=== PATIENT | female | born 1995 | race Caucasian/White ===

== ENCOUNTER 2017-03-30 15:52 | Emergency (ER) | payer BC, OTHER ==
[2017-03-30 16:12] VITALS: BP 108/72
[2017-03-30] MEDS ORDERED: Tetan/Diph/Pertus SYR(Tdap)* 0.5 ML SYR(BOOSTRIX) use SYR IM ONE (16:17)
--- NOTE | 2017-03-30 16:17 | UC ---
Skin Complaint HPI - HPI Summary HPI Summary: Patient stepped on a kathi nail this morning, more of a scrap then a puncture, but she is not up to date on Tetanus. Site is clean, non red, tender when walking - History of Current Complaint Chief Complaint: UCWounds Time Seen by Provider: 03/30/17 16:12 Stated Complaint: STEPPED ON KATHI NAIL Hx Obtained From: Patient Hx Last Menstrual Period: 06/17/15 ?: No Onset/Duration: Sudden Onset, Lasting Hours Skin Exposure Onset/Duration: Minutes Ago, Hours Ago Timing: Intermittent Episodes Lasting: - once Onset Severity: Mild Current Severity: Mild Character: Pain Aggravating: Nothing Alleviating: Nothing Related History: Trauma - Allergy/Home Medications Allergies/Adverse Reactions: Allergies Allergy/AdvReac Type Severity Reaction Status Date / Time No Known Allergies Allergy Unverified 09/17/13 15:13 Review of Systems Constitutional: Negative Skin: Negative, Other - small open area on bottom of toe Eyes: Negative ENT: Negative Respiratory: Negative Cardiovascular: Negative Gastrointestinal: Negative Genitourinary: Negative Motor: Negative Neurovascular: Negative Musculoskeletal: Negative Neurological: Negative Psychological: Negative All Other Systems Reviewed And Are Negative: Yes PMH/Surg Hx/FS Hx/Imm Hx Previously Healthy: Yes - Surgical History Surgical History: Yes Surgery Procedure, Year, and Place: Right inguinal hernia. tonsilectomy - Family History Known Family History: Negative: Cardiac Disease, Hypertension - Social History Alcohol Use: None Substance Use Type: None Smoking Status (MU): Never Smoked Tobacco Have You Smoked in the Last Year: No - Immunization History Vaccination Up to Date: Yes Physical Exam Triage Information Reviewed: Yes Appearance: Well-Appearing, Well-Nourished, Pain Distress Vital Signs: Initial Vital Signs Temp 99.2 F 03/30/17 16:09 Pulse 53 03/30/17 16:09 Resp 18 03/30/17 16:09 BP 108/72 03/30/17 16:09 Pulse Ox 99 03/30/17 16:09 Vital Signs Reviewed: Yes Eye Exam: Normal Eyes: Positive: Conjunctiva Clear ENT Exam: Normal ENT: Positive: Hearing grossly normal, Pharynx normal, TMs normal Dental Exam: Normal Neck exam: Normal Respiratory Exam: Normal Cardiovascular Exam: Normal Abdominal Exam: Normal Bowel Sounds: Positive: Present Musculoskeletal Exam: Normal Neurological Exam: Normal Psychological Exam: Normal Skin: Positive: Other - small scrape to the bottow of left great toe Course/Dx - Course Course Of Treatment: hx obtained, exam performed ,meds reviewed, tetanus given, educated on warm soaks - Differential Diagnoses - Skin Complaint Differential Diagnoses: Abscess, Cellulitis, Contact Dermatitis, Medication; Adverse Reaction, MRSA, Urticaria - Diagnoses Provider Diagnoses: puncture wound to left great toe Discharge - Discharge Plan Condition: Stable Disposition: HOME Patient Education Materials: Puncture Wound (ED), Warm Compress or Soak (ED) Additional Instructions: 1. monitor for signs of infection, increased Redness, swelling or drainage. 2. Soak your foot twice a day for the next few days. 3. Follow up as needed. 4. You received the tetanus, diptheria and pertussis booster today.
== END 2017-03-30 16:25 | disposition home or self-care (01) ==
LOC: UCEAST 15:52
DX: S91.132A Puncture wound without foreign body of left great toe without damage to nail, initial encounter (principal); W22.8XXA Striking against or struck by other objects, initial encounter; Y93.9 Activity, unspecified; Y92.9 Unspecified place or not applicable; Y99.9 Unspecified external cause status; Z23 Encounter for immunization
CPT/HCPCS: 90715; 99211; G0463

== ENCOUNTER 2018-12-17 09:49 | Emergency (ER) | payer BC, OTHER ==
--- OUTSIDE RECORDS SUMMARY | 2018-12-17 10:14 | XMS REPORT | Continuity of Care Document ---
:1995 External Reference #:[id number] Author Name Lilian Howell M.D. Address [address] [place] [address] Care Team Providers Name Role Phone Lilian Howell M.D. Primary Care Physician Unavailable Payers Date Identification Numbers Payment Provider Subscriber Effective: 2013 Policy Number: [id number] [facility] Jesus Mao PayID: [id number] [address] [place] [address] Advance Directives Description No Information Available Problems Date Description Provider Status Onset: 09/23/2014 Acne Lilian Howell M.D. Active Family History Description No Information Available Social History Type Date Description Comments Sex Unknown Tobacco Use Start: Unknown Patient has never smoked Tobacco Use Start: Unknown No Exposure To Secondhand Smoke Smoking Status Reviewed: 10/12/18 No Exposure To Secondhand Smoke Allergies, Adverse Reactions, Alerts Description No Known Drug Allergies Medications Medication Date Status Form Strength Qnty SIG Indications Ordering Provider Atovaquone-Pro 10/12/ Active Tablets 250-100mg 60tabs 1 tab by TRAVEL Lilian Dinh guanil HCL 2018 mouth every Lynda, day start 2 M.D. days prior to travel and continue for a week after returning Cipro 10/12/ Active Tablets 500mg 12tabs 1 tab by TRAVEL Lilian Dinh 2017 mouth twice Lynda, a day x3d M.D. Mupirocin 10/12/ Active Ointment 2% 1units apply to TRAVEL Lilian Lara affected Lynda, area 3x/per M.D. a day x7d Nexplanon 10/13/ Active Implant 68mg Unknown 2017 Clindamycin / Active Gel 1-5% 50gm every day Lilian H. Phos-Benzoyl 0000 Lynda, Perox M.D. Retin-A / Active Cream 0.05% 45gm apply to Unknown 0000 face nightly, wash off in the morning. Amoxicillin 10/24/ Hx Tablets 875mg 20tabs 1 tab by J01.80 Gabbie 2016 - mouth twice Hall, 03/06/ a day for M.D. 2017 10 days Tri-Linyah 09/23/ Hx Tablets 0.18/0.215 28tabs take 1 Lilian H. 2014 - /0.25 tablet by Lynda, 10/13/ mg-35 mcg mouth once M.D. 2018 daily Tri-Sprintec 05/27/ Hx Tablets Every Day Unknown 2013 - 2013 Tretinoin 03/23/ Hx Cream 0.1% Every Day Unknown 2012 - 2013 Minocycline / Hx Tablets 100mg 30tabs 1 tab by Unknown HCL 0000 - mouth every 09/28/ day 2014 Cephalexin / Hx Capsules 500mg take 1 Unknown 0000 - capsule by 10/23/ mouth once 2016 daily Ibuprofen 200 / Hx Tablets 200mg Last dose Unknown - 10/09 @ 10// 1000 2 2018 tablets Medications Administered in Office Medication Date Status Form Strength Qnty SIG Indications Ordering Provider Immunization 10/02/ Administered Injection Nursing Adminstration 22017 Single Or Combination Immunization 10/02/ Administered Injection Nursing Administration 2018 Single Or Combination Immunization 04/14/ Administered Injection Lilian H. Administration 2018 Lynda, Single Or M.D. Combination TB Intradermal 04/14/ Administered Injection Lilian H. Test 2018 Lynda, M.D. Immunization 10/27/ Administered Injection Lilian H. Administration 2017 Lynda, Single Or M.D. Combination Immunization 09/29/ Administered Injection Lilian H. Administration 2014 Lynda, Single Or M.D. Combination Immunization 09/23/ Administered Injection Lilian H. Adminstration 2+ 2013 Lynda, Single Or M.D. Combination Immunization 09/23/ Administered Injection Lilian H. Administration 2014 Lynda, Single Or M.D. Combination Immunizations CPT Code Status Date Vaccine Lot # [id number] Given 10/02/2018 Td Preservative Free For Use In Individuals 7 Yrs [id number] Or Older 86834 Given 10/02/2018 Typhoid Injectable [id number] 87417 Given 10/02/2018 Flu Quadrivalent [id number] 86953 Given 10/02/2018 Meningococcal B Vaccine [id number] 32881 Given 04/14/2018 Meningococcal B Vaccine [id number] 86850 Given 10/27/2017 Meningococcal Conjugate Vaccine (Menveo) [id number] 07969 Given 09/12/2017 Flu Quadrivalent 00515 Given 11/09/2016 Flu Quadrivalent 05536 Given 09/29/2015 Flu Quadrivalent [id number] 27938 Given 09/23/2014 Flu Quadrivalent [id number] 88905 Given 09/23/2014 Varicella (Chicken Pox) Vaccine [id number] 44517 Given 03/22/2014 Gardasil 19375 Given 11/22/2013 Gardasil 29860 Given 09/17/2013 Influenza Virus Vaccine, Split Virus, 6-35 Months Age Intramuscul 91901 Given 09/17/2013 Gardasil 17999 Given 08/19/2012 Influenza Virus Vaccine, Split Virus, 6-35 Months Age Intramuscul 72227 Given 08/02/2011 Influenza Virus Vaccine, Split Virus, 6-35 Months Age Intramuscul 83865 Given 07/27/2010 Influenza Virus Vaccine Intranasal 87640 Given 08/23/2009 Influenza Virus Vaccine, Split Virus, 6-35 Months Age Intramuscul 51922 Given 07/26/2009 Tdap 04115 Given 07/26/2009 Menactra 47178 Given 08/03/2008 Influenza Virus Vaccine Intranasal 43891 Given 06/30/2003 Hepatitis A Pediatric 71080 Given 01/12/2003 Polio Injectable 17862 Given 01/12/2003 MMR Vaccine, Live, For Subcutaneous Use 19989 Given 01/12/2003 DTaP Vaccine Younger Than 7 66014 Given 12/16/2002 Hepatitis A Pediatric 28402 Given 07/31/1999 Varicella (Chicken Pox) Vaccine 08436 Given 01/15/1999 DTaP Vaccine Younger Than 7 27077 Given 01/15/1999 MMR Vaccine, Live, For Subcutaneous Use 43432 Given 01/15/1999 Polio Injectable 75924 Given 01/15/1999 Comvax (For Historical Use Only) 50232 Given 05/01/1998 DTaP Vaccine Younger Than 7 38227 Given 02/22/1998 Comvax (For Historical Use Only) 40888 Given 02/22/1998 Polio Injectable 33436 Given 02/22/1998 DTaP Vaccine Younger Than 7 24673 Given 01/09/1998 Comvax (For Historical Use Only) 21578 Given 01/09/1998 Polio Injectable 63378 Given 01/09/1998 DTaP Vaccine Younger Than 7 Vital Signs Date Vital Result Comment 10/12/2018 11:47am Body Temperature 98.6 F Heart Rate 50 /min Respiratory Rate 14 /min BP Systolic 101 mmHg BP Diastolic 65 mmHg Weight 121.44 lb Weight 55.084 kg 10/09/2018 1:29pm Body Temperature 98.8 F Heart Rate 80 /min Respiratory Rate 16 /min BP Systolic 122 mmHg BP Diastolic 68 mmHg Weight 122.50 lb Weight 55.566 kg 04/14/2018 10:34am Body Temperature 97.6 F Heart Rate 62 /min Respiratory Rate 14 /min BP Systolic 110 mmHg BP Diastolic 62 mmHg Weight 120.50 lb Weight 54.659 kg Height 65 inches 5'5" BMI (Body Mass Index) 20.1 kg/m2 10/27/2017 10:50am Body Temperature 98.6 F Heart Rate 55 /min Respiratory Rate 12 /min BP Systolic 98 mmHg BP Diastolic 50 mmHg Weight 113.38 lb Weight 51.427 kg Height 65.0 inches 5'5" BMI (Body Mass Index) 18.9 kg/m2 03/07/2017 1:34pm Body Temperature 98.8 F Heart Rate 63 /min Respiratory Rate 12 /min BP Systolic 111 mmHg BP Diastolic 74 mmHg Weight 122.75 lb Weight 55.679 kg Height 64.75 inches 5'4.75" BMI (Body Mass Index) 20.6 kg/m2 Body Mass Index Percentile 37 % 2015 9:23am Body Temperature 98.4 F Heart Rate 66 /min Respiratory Rate 14 /min BP Systolic 122 mmHg BP Diastolic 64 mmHg Blood Pressure Percentile 0 % Weight 121.38 lb Weight 55.056 kg Weight Percentile 45th 09/29/2015 2:42pm Body Temperature 98.5 F Heart Rate 56 /min Respiratory Rate 12 /min BP Systolic 107 mmHg BP Diastolic 63 mmHg Blood Pressure Percentile 0 % Weight 125.19 lb Weight 56.785 kg Height 65.5 inches 5'5.50" BMI (Body Mass Index) 20.5 kg/m2 Body Mass Index Percentile 40 % Height Percentile 69 % Weight Percentile 53rd 02/06/2015 10:55am Body Temperature 98.2 F Heart Rate 70 /min Respiratory Rate 12 /min BP Systolic 125 mmHg BP Diastolic 73 mmHg Blood Pressure Percentile 87 % Weight 126.50 lb Weight 57.380 kg Height 65.5 inches 5'5.50" BMI (Body Mass Index) 20.7 kg/m2 Body Mass Index Percentile 47 % Height Percentile 70 % Weight Percentile 58th 09/23/2014 3:08pm Body Temperature 98.8 F Heart Rate 48 /min Respiratory Rate 12 /min BP Systolic 105 mmHg BP Diastolic 70 mmHg Blood Pressure Percentile 23 % Weight 124.75 lb Weight 56.587 kg Height 65 inches 5'5" BMI (Body Mass Index) 20.8 kg/m2 Body Mass Index Percentile 49 % Height Percentile 63 % Weight Percentile 57th 09/17/2013 12:00pm Heart Rate 61 /min Respiratory Rate 12 /min BP Systolic 104 mmHg BP Diastolic 69 mmHg Weight 118.38 lb Weight 53.705 kg Height 64.75 inches 04/30/2013 1:00pm Heart Rate 74 /min Respiratory Rate 12 /min Weight 121.12 lb Weight 54.930 kg 02/01/2013 1:00pm Heart Rate 60 /min Respiratory Rate 20 /min BP Systolic 105 mmHg BP Diastolic 65 mmHg Weight 119.50 lb Weight 54.204 kg 08/19/2012 12:00pm Body Temperature 98.8 F Heart Rate 68 /min Respiratory Rate 18 /min BP Systolic 110 mmHg BP Diastolic 70 mmHg Weight 113.50 lb Weight 51.483 kg Height 64.5 inches 05/19/2012 1:00pm Heart Rate 64 /min Respiratory Rate 20 /min BP Systolic 106 mmHg BP Diastolic 54 mmHg Weight 112.25 lb Weight 50.916 kg 11/19/2011 12:00pm Heart Rate 60 /min Respiratory Rate 16 /min BP Systolic 90 mmHg BP Diastolic 68 mmHg Weight 106.25 lb Weight 48.194 kg 08/02/2011 1:00pm Heart Rate 54 /min Respiratory Rate 12 /min BP Systolic 92 mmHg BP Diastolic 60 mmHg Weight 98.38 lb Weight 44.633 kg Height 64.25 inches 05/27/2011 1:00pm Heart Rate 66 /min Respiratory Rate 16 /min BP Systolic 111 mmHg BP Diastolic 82 mmHg Weight 95.88 lb Weight 43.500 kg 09/17/2010 12:00pm Heart Rate 64 /min Respiratory Rate 12 /min BP Systolic 100 mmHg BP Diastolic 60 mmHg Weight 89.00 lb Weight 40.370 kg 09/10/2010 12:00pm Heart Rate 84 /min Respiratory Rate 20 /min BP Systolic 106 mmHg BP Diastolic 68 mmHg Weight 88.62 lb Weight 40.202 kg 07/27/2010 1:00pm Heart Rate 60 /min Respiratory Rate 12 /min BP Systolic 101 mmHg BP Diastolic 64 mmHg Weight 90.12 lb Weight 40.869 kg Height 62.75 inches 07/10/2010 1:00pm Heart Rate 90 /min Respiratory Rate 16 /min BP Systolic 100 mmHg BP Diastolic 70 mmHg Weight 89.94 lb Weight 40.801 kg 05/17/2010 1:00pm Heart Rate 64 /min Respiratory Rate 20 /min BP Systolic 98 mmHg BP Diastolic 60 mmHg Weight 87.00 lb Weight 39.463 kg 07/17/2009 1:00pm Height 60 inches 07/17/2009 1:00pm Heart Rate 68 /min Respiratory Rate 20 /min BP Systolic 106 mmHg BP Diastolic 62 mmHg Weight 80.50 lb Weight 36.514 kg Height 59.75 inches 02/21/2009 1:00pm Heart Rate 96 /min Respiratory Rate 18 /min BP Systolic 96 mmHg BP Diastolic 62 mmHg Weight 77.00 lb Weight 34.927 kg 01/16/2009 1:00pm Heart Rate 80 /min Respiratory Rate 16 /min BP Systolic 104 mmHg BP Diastolic 66 mmHg Weight 76.75 lb Weight 34.813 kg Height 59 inches 09/26/2008 12:00pm Heart Rate 96 /min Respiratory Rate 20 /min BP Systolic 98 mmHg BP Diastolic 64 mmHg Weight 72.25 lb Weight 32.772 kg 08/02/2008 1:00pm Heart Rate 76 /min Respiratory Rate 18 /min BP Systolic 96 mmHg BP Diastolic 76 mmHg Weight 68.75 lb Weight 31.184 kg Height 58 inches 11/23/2007 12:00pm Heart Rate 76 /min Respiratory Rate 12 /min BP Systolic 98 mmHg BP Diastolic 64 mmHg Weight 69.25 lb Weight 31.411 kg 11/02/2007 12:00pm Heart Rate 68 /min Respiratory Rate 16 /min BP Systolic 98 mmHg BP Diastolic 58 mmHg Weight 66.25 lb Weight 30.050 kg 10/16/2007 12:00pm Heart Rate 80 /min Respiratory Rate 20 /min BP Systolic 88 mmHg BP Diastolic 40 mmHg Weight 66.50 lb Weight 30.164 kg 07/28/2007 1:00pm Heart Rate 76 /min Respiratory Rate 16 /min BP Systolic 96 mmHg BP Diastolic 56 mmHg Weight 64.50 lb Weight 29.257 kg Height 55.5 inches 07/03/2007 1:00pm Heart Rate 64 /min Respiratory Rate 20 /min BP Systolic 94 mmHg BP Diastolic 52 mmHg Weight 64.50 lb Weight 29.257 kg 02/26/2007 1:00pm Heart Rate 60 /min Respiratory Rate 16 /min BP Systolic 92 mmHg BP Diastolic 60 mmHg Weight 67.00 lb Weight 30.391 kg 01/01/2007 1:00pm Heart Rate 70 /min Respiratory Rate 18 /min BP Systolic 84 mmHg BP Diastolic 54 mmHg Weight 65.00 lb Weight 29.484 kg 12/22/2006 1:00pm Heart Rate 68 /min Respiratory Rate 20 /min BP Systolic 98 mmHg BP Diastolic 60 mmHg Weight 64.00 lb Weight 29.030 kg 12/09/2006 12:00pm Heart Rate 60 /min Respiratory Rate 16 /min BP Systolic 90 mmHg BP Diastolic 54 mmHg Weight 68.00 lb Weight 30.844 kg 11/07/2006 12:00pm Heart Rate 68 /min Respiratory Rate 16 /min BP Systolic 92 mmHg BP Diastolic 60 mmHg Weight 64.00 lb Weight 29.030 kg 10/20/2006 12:00pm Heart Rate 72 /min Respiratory Rate 16 /min BP Systolic 92 mmHg BP Diastolic 50 mmHg Weight 62.50 lb Weight 28.350 kg 10/14/2006 12:00pm Heart Rate 96 /min Respiratory Rate 20 /min BP Systolic 84 mmHg BP Diastolic 60 mmHg Weight 62.00 lb Weight 28.123 kg 02/28/2006 1:00pm Heart Rate 72 /min Respiratory Rate 20 /min BP Systolic 98 mmHg BP Diastolic 56 mmHg Weight 58.00 lb Weight 26.308 kg 02/15/2006 1:00pm Heart Rate 84 /min Respiratory Rate 16 /min BP Systolic 84 mmHg BP Diastolic 60 mmHg Weight 58.00 lb Weight 26.308 kg Results Test Date Facility Test Result H/L Range Note Laboratory test 10/09/2018 [facility] .Quick Strep negative finding [address] W/[place] [address] [phone] .Culture Throat neg GC/Chlamydia 04/14/2018 [facility] Chlamydia Negative Negative 1 Amplified Rna [address] [place] [address] Neisseria gonorrhoeae (GC) Rna Negative Negative .Cholesterol 04/14/2018 [facility] Cholesterol Total [address] [place] Mass/[place] [address] [phone] HDL Cholesterol Mass/Vol 74 Triglycerides Ser/Plas Mass/VL 96 LDL Cholesterol Mass/Vol 78 Non-HDL Cholesterol QN Ser/PLS 97 LDL/HDL Ratio 2.3 .CBC W/Auto 04/14/2018 [facility] White Blood 5.[address] [place] [address] CNT [phone] Absolute Lymphocytes 1.5 Absolute Monocytes 0.6 Absolute Neutrophils Auto CNT 3.0 Lymph% 28.7 Harlan% Auto Count BLD 12.1 Neutrophil % 59.2 RBC Red Blood Count 4.63 Hemoglobin Blood 13.7 Hematocrit 42.9 MCV (Corpuscular Volume) 92.7 MCH (Corpuscular Hemoglobin) 29.6 MCHC (Corpuscular Hemog Conc) 31.9 RDW 12.1 Platelet Count Blood Auto CNT 161 MPV 8.0 GC/Chlamydia 03/07/2017 [facility] Chlamydia Negative N Negative Amplified Rna [address] [place] [address] Neisseria gonorrhoeae (GC) Rna Negative N Negative .CBC W/Auto 03/07/2017 [facility] White Blood 5.[address] [place] [address] CNT [phone] Absolute Lymphocytes 1.7 Absolute Monocytes 0.6 Absolute Neutrophils Auto CNT 3.6 Lymph% 29.2 Harlan% Auto Count BLD 9.5 Neutrophil % 61.3 RBC Red Blood Count 4.47 Hemoglobin Blood 14.6 Hematocrit 44.3 MCV (Corpuscular Volume) 99.2 MCH (Corpuscular Hemoglobin) 32.7 MCHC (Corpuscular Hemog Conc) 33.0 RDW 12.3 Platelet Count Blood Auto CNT 181. MPV 8.5 .CBC W/Auto 09/29/2015 [facility] White Blood 5.[address] [place] [address] CNT [phone] Absolute Lymphocytes 1.7 Absolute Monocytes 0.7 Absolute Neutrophils Auto CNT 3.0 Lymph% 31.4 Harlan% Auto Count BLD 13.3 Neutrophil % 55.3 RBC Red Blood Count 4.66 Hemoglobin Blood 13.7 Hematocrit 41.2 MCV (Corpuscular Volume) 88.4 MCH (Corpuscular Hemoglobin) 29.4 MCHC (Corpuscular Hemog Conc) 33.3 RDW 12.5 Platelet Count Blood Auto CNT 176. MPV 8.6 .CBC W/Auto 09/23/2014 [facility] White Blood 6.[address] [place] [address] CNT [phone] Absolute Lymphocytes 2.1 Absolute Monocytes 0.7 Absolute Neutrophils Auto CNT 3.5 Lymph% 33.3 Harlan% Auto Count BLD 11.3 Neutrophil % 55.4 RBC Red Blood Count 4.61 Hemoglobin Blood 12.8 Hematocrit 39.4 MCV (Corpuscular Volume) 85.5 MCH (Corpuscular Hemoglobin) 27.8 MCHC (Corpuscular Hemog Conc) 32.5 RDW 15.9 Platelet Count Blood Auto CNT 193. MPV 8.9 Laboratory test finding 09/17/2013 [facility] Granulocytes # 3.8 1.5-8.0 Granulocytes (%) 56.8 38.0-83.0 Hematocrit 40.1 36.0-46.0 Hemoglobin 12.9 12.0-16.0 Lymphocytes # 2.0 1.2-5.2 Lymphocytes % 30.4 20.0-45.0 Mean Corpuscular Hemoglobin 25.1 Low 26.0-34.0 Mean Corpuscular Hemoglobin Concent 32.2 31.0-37.0 Mean Platelet Volume 8.8 7.4-10.4 Monocytes # 0.9 High 0.0-0.8 Monocytes % 12.8 High 1.0-9.0 Platelet Count 242. 150-350 Poc Mean Corpuscular Volume 78.2 78.0-102.0 Red Blood Count 5.13 High 3.90-5.10 Red Cell Distribution Width 15.6 High 10.5-15.0 White Blood Count 6.7 4.5-13.5 Laboratory test finding 08/19/2012 [facility] Granulocytes # 4.3 1.5-8.0 Granulocytes (%) 61.2 38.0-83.0 Hematocrit 39.7 36.0-46.0 Hemoglobin 12.4 12.0-16.0 Lymphocytes # 1.9 1.2-5.2 Lymphocytes % 27.1 20.0-45.0 Mean Corpuscular Hemoglobin 28.0 26.0-34.0 Mean Corpuscular Hemoglobin Concent 31.2 31.0-37.0 Mean Platelet Volume 8.7 7.4-10.4 Monocytes # 0.8 0.0-0.8 Monocytes % 11.7 High 1.0-9.0 Platelet Count 166 x10.3/ul 150-350 Poc Mean Corpuscular Volume 89.6 78.0-102.0 Red Blood Count 4.43 3.90-5.10 Red Cell Distribution Width 14.1 10.5-15.0 White Blood Count 7.1 4.5-13.5 Laboratory test 11/20/2011 [facility] Throat Culture negative finding Laboratory test 08/02/2011 [facility] Granulocytes # 3.2 1.5-8.0 finding Granulocytes (%) 47.6 38.0-83.0 Hematocrit 41.1 36.0-46.0 Hemoglobin 13.8 12.0-16.0 Lymphocytes # 2.7 1.2-5.2 Lymphocytes % 39.7 20.0-45.0 Mean Corpuscular Hemoglobin 31.2 26.0-34.0 Mean Corpuscular Hemoglobin Concent 33.6 31.0-37.0 Mean Platelet Volume 8.4 7.4-10.4 Monocytes # 0.9 High 0.0-0.8 Monocytes % 12.7 High 1.0-9.0 Platelet Count 162 x10.3/ul 150-350 Poc Mean Corpuscular Volume 92.6 78.0-102.0 Red Blood Count 4.44 3.90-5.10 Red Cell Distribution Width 13.3 10.5-15.0 White Blood Count 6.8 4.5-13.5 Laboratory test finding 09/10/2010 [facility] Granulocytes # 6.5 1.5-8.0 Granulocytes (%) 65.9 38.0-83.0 Hematocrit 43.7 36.0-46.0 Hemoglobin 14.6 12.0-16.0 Lymphocytes # 2.2 1.2-5.2 Lymphocytes % 22.5 20.0-45.0 Mean Corpuscular Hemoglobin 29.7 26.0-34.0 Mean Corpuscular Hemoglobin Concent 33.4 31.0-37.0 Mean Platelet Volume 8.4 7.4-10.4 Monocytes # 1.1 High 0.0-0.8 Monocytes % 11.6 High 1.0-9.0 Platelet Count 197 x10.3/ul 150-350 Poc Mean Corpuscular Volume 89.0 78.0-102.0 Red Blood Count 4.91 3.90-5.10 Red Cell Distribution Width 13.1 10.5-15.0 White Blood Count 9.8 4.5-13.5 Laboratory test 09/27/2008 [facility] Urine [place] Count None finding Laboratory test 09/26/2008 [facility] Urine Bacteria Negative finding Urine Bilirubin Negative Urine Blood negative Urine Clarity Clear Urine Collection Type Clean Urine Color Yellow Urine Crystals Occas Urine Epithelial Cells Occas Urine Glucose negative Urine Granular Casts Negative Urine Hyaline Casts Negative Urine Ketones Negative Urine Leukocyte Esterase negative Urine Mucus Negative Urine Nitrite Positive Urine Protein Negative Urine RBC Negative Urine Specific [place] 1.010 Urine Urobilinogen Normal 0.2-1.0 Urine WBC Negative Urine Yeast Negative Urine pH 6 Laboratory test finding 11/24/2007 [facility] Throat Culture N Laboratory test finding 10/19/2007 [facility] 1/Creatinine 1.66 Absolute Neutrophil 3.9 Alanine Aminotransferase (Alt/SGPT) 15 U/L 14-54 Albumin 3.9 3.6-5.4 Albumin/Globulin Ratio 1.7 1-3 Alkaline Phosphatase 213 U/L 65-265 Anion Gap 5.0 2-11 Aspartate Amino Transf (Ast/Sgot) 23 U/L 12-42 Atypical Lymphocytes 2 % 0-6 BUN/Creatinine Ratio 26.7 High 8-20 Band Neutrophils 6 % 0-8 Blood Urea Nitrogen 16 mg/dL 6-24 Calcium Level 9.6 8.7-10.2 Carbon Dioxide Level 28.0 22-32 Chloride Level 107 mmol/L 101-111 Creatinine 0.6 0.5-1.4 Eosinophils % 5 % 0-6 Globulin 2.3 2-4 Glucose Level 80 mg/dL 70-105 Helicobacter pylori IgA Antibody <=12.50 () Helicobacter pylori IgG Antibody <0.75 () Helicobacter pylori IgM Antibody <=30.00 () Hematocrit 39 % 34-40 Hemoglobin 13.3 11.5-14.0 Lymphocytes % 23 % 5-47 Mean Corpuscular Hemoglobin 29 pg 24-30 Mean Corpuscular Hemoglobin Concent 34 g/dL 30-36 Mean Corpuscular Volume 86 um3 76-87 Mean Platelet Volume 8.1 7.4-10.4 Monocytes % 8 % 0-13 Neutrophils % 56 % 38-83 Platelet Count 348 CUMM 150-450 Potassium Level 4.4 3.6-5.2 Red Blood Cell Morphology Normal Red Blood Count 4.56 3.9-5.3 Red Cell Distribution Width 13 % 10.5-15 Sodium Level 140 mmol/L 135-145 Thyroid Stimulating Hormone (TSH) 2.21 0.34-5.60 Thyroxine (T4) 7.3 5-12 Total Bilirubin 0.7 0.4-1.5 Total Protein 6.2 6.2-8.1 White Blood Count 6.4 5.0-17.0 Laboratory test finding 10/16/2007 [facility] Urine Bilirubin N Urine Blood N Urine Clarity Clear Urine Collection Type Clean Urine Color Yellow Urine Glucose N Urine Ketones N Urine Leukocyte Esterase Negative Urine Nitrite Negative Urine Protein Negative Urine Specific [place] 1.005 Urine Urobilinogen N 0.2-1.0 Urine pH 6 1 [id number] Procedures Date Code Description Status 04/14/2018 52264 Vision Screening Completed 04/14/2018 65350 Admin Patient Focused Health Risk Assessment Instrument Completed 04/14/2018 51457 Brief Emotional/Behav Assessment W/ Scoring Doc Per Completed Standard Inst 04/14/2018 94510 Hearing Screen, Pure Tone, Air Completed 04/14/2018 72293 Collection Of Capillary Blood Specimen Completed 03/07/2017 81139 Collection Of Capillary Blood Specimen Completed 03/07/2017 67154 Hearing Screen, Pure Tone, Air Completed 03/07/2017 16128 Admin Patient Focused Health Risk Assessment Instrument Completed 03/07/2017 74161 Vision Screening Completed 09/29/2015 87196 Vision Screening Completed 09/29/2015 48951 Hearing Screen, Pure Tone, Air Completed 09/29/2015 68574 Collection Of Capillary Blood Specimen Completed 09/23/2014 44327 Vision Screening Completed 09/23/2014 82736 Vision Screening Completed 09/23/2014 45015 Hearing Screen, Pure Tone, Air Completed 09/23/2014 31944 Hearing Screen, Pure Tone, Air Completed 09/23/2014 09531 Collection Of Capillary Blood Specimen Completed Encounters Type Date Location Provider Dx Diagnosis Office Visit 10/12/2018 [facility] TRAVEL Edis Z71.89 Travel Consult 11:30a M.D. Office Visit 10/09/2018 [facility] Merari Brice, J02.9 Acute pharyngitis, 1:15p [employer] unspecified Office Visit 04/14/2018 [place] [facility] Lilian Howell, Z00.00 Encntr for general 10:15a M.D. adult medical exam w/o abnormal findings Z11.3 Encntr screen for infections w sexl mode of transmiss Z13.89 Encounter for screening for other disorder Z71.89 Other specified counseling Office Visit 10/27/2017 10:30a [facility] Lilian Dinh Z23 Encounter for Shena Howell immunization Office Visit 03/07/2017 1:30p [facility] Lilian Dinh Z00.00 Encntr for general Shena Howell adult medical exam w/o abnormal findings Z11.3 Encntr screen for infections w sexl mode of transmiss Z71.89 Other specified counseling Office Visit 2015 9:15a [facility] Gabbie Hall, J01.80 Other acute M.D. sinusitis B07.0 Plantar wart Office Visit 09/29/2015 2:30p [facility] Lilian Dinh Z00.121 Encounter for Shena Howell routine child health exam w abnormal findings L70.0 Acne vulgaris Z00.129 Encntr for routine child health exam w/o abnormal findings Office Visit 02/06/2015 10:45a [facility] Lilian Howell, 840.9 Sprains & Strains M.D. Shoulder & Upper Arm Unspec Office Visit 09/23/2014 2:30p [facility] Lilian Howell, V20.2 Routine Or M.D. Child Health Check 706.1 Acne Other 727.49 Cyst Synovial Other Plan of Treatment 10/12/2018 - Lilian Howell M.D.TRAVEL Z71.89 Travel ConsultNew Medication: Atovaquone-Proguanil HCL 250-100 mg - 1 tab by mouth every day start 2 days prior to travel and continue for a week after returningCipro 500 mg - 1 tab by mouth twice a day [id number] 2 % - apply to affected area 3x/per a day x7d
[2018-12-17 10:20] VITALS: BP 98/58
--- NOTE | 2018-12-17 10:43 | UC ---
Skin Complaint HPI - HPI Summary HPI Summary: REturned from [facility] yesterday and has noticed two white spots on both forearms. denies itching or fever. - History of Current Complaint Chief Complaint: UCSkin Time Seen by Provider: 12/17/18 10:27 Stated Complaint: SKIN ISSUE Hx Obtained From: Patient Hx Last Menstrual Period: 06/17/15 Onset Severity: Mild Current Severity: None Pain Intensity: 0 Pain Scale Used: 0-10 Numeric Aggravating Factor(s): Nothing Alleviating Factor(s): Nothing - Allergy/Home Medications Allergies/Adverse Reactions: Allergies Allergy/AdvReac Type Severity Reaction Status Date / Time No Known Allergies Allergy Verified 12/17/18 10:20 Home Medications: Home Medications Clindamycin 1% TOPICAL(NF) [Cleocin-T 1% TOPICAL(NF)] 1 applic TOPICAL DAILY 04/30 [History Confirmed 12/17/18] PMH/Surg Hx/FS Hx/Imm Hx Previously Healthy: Yes - Surgical History Surgical History: Yes Surgery Procedure, Year, and Place: Right inguinal hernia. tonsilectomy - Family History Known Family History: Negative: Cardiac Disease, Hypertension - Social History Alcohol Use: None Substance Use Type: None Smoking Status (MU): Never Smoked Tobacco Have You Smoked in the Last Year: No - Immunization History Vaccination Up to Date: Yes Review of Systems All Other Systems Reviewed And Are Negative: Yes Constitutional: Positive: Negative. Negative: Fever Skin: Positive: Rash Respiratory: Negative: Shortness Of Breath Musculoskeletal: Negative: Arthralgia Physical Exam Triage Information Reviewed: Yes Appearance: Well-Appearing Vital Signs: Initial Vital Signs Temp 97.5 F 12/17/18 10:06 Pulse 51 12/17/18 10:06 Resp 18 12/17/18 10:06 BP 98/58 12/17/18 10:06 Pulse Ox 100 12/17/18 10:06 Vital Signs Reviewed: Yes Musculoskeletal: Positive: Other: - no joint swelling in UE noted. Skin: Positive: Other - a patch on both ant. forearms of hypopigmentation. non pruritic and no open areas. vague border but no erythema. Course/Dx - Course Course Of Treatment: Benign hypopigmentation and suspect pityriasis alba vs. versicolor. Will tx for possible fungal source. afebrile. Of note was in [place] until yesterday. she will return if worsening. - Differential Diagnoses - Skin Complaint Differential Diagnoses: Impetigo, Tinea, Urticaria, Other - Diagnoses Provider Diagnosis: Hypopigmentation Discharge - Sign-Out/Discharge Documenting (check all that apply): Patient Departure All imaging exams completed and their final reports reviewed: No Studies - Discharge Plan Condition: Good Disposition: HOME Prescriptions: Clotrimazole 1% CREAM* [Clotrimazole 1%*] 1 applic TOPICAL BID 14 Days tube Patient Education Materials: Tinea Corporis (ED) Referrals: No Primary Care Phys,NOPCP [Primary Care Provider] - Additional Instructions: Although we are treating this as a possible fungal infection it may be other conditions that we discussed that could improve if kept covered from the sun. Please follow up with your pcp if worsening. - Billing Disposition and Condition Condition: GOOD Disposition: Home
== END 2018-12-17 10:50 | disposition home or self-care (01) ==
LOC: UCEAST 09:49
DX: L81.8 Other specified disorders of pigmentation (principal)
CPT/HCPCS: 99201; G0463